=== PATIENT | male | born 1990 | race Caucasian/White ===

== ENCOUNTER 2018-07-24 05:19 | Emergency (ER) | payer SELFPAY ==
[2018-07-24] MEDS ORDERED: ONDANSETRON 4 MG/2 ML VIAL IVP ONE (05:37)
[2018-07-24] MEDS ORDERED: NS 1,000 ML IV ONE ×2 (05:37→06:11)
[2018-07-24] MEDS ORDERED: KETOROLAC 15 MG/1 ML SDV IVP ONE (05:37)
[2018-07-24] MEDS ORDERED: HYDROmorphONE/DILAUDID 2 MG/ML INJ IVP ONE (05:37)
[2018-07-24] MEDS ORDERED: LIDOCAINE 1% 180 MG in NS 100 ML IV ONE (05:38)
--- NOTE | 2018-07-24 05:40 | EDPHY ---
H & P Stated Complaint: LEFT FLANK PAIN Time Seen by Provider: 07/24/18 05:29 HPI/ROS: HPI The patient presents with left flank pain which awoke him from sleep at 3:00 a.m. This morning. He felt fine when he went to bed last night. He is had progressively worse dull left flank pain without any radiation for the last several hours, not improved with Tylenol which he took earlier. He does not have any nausea or vomiting. He has a history of renal colic, last episode about 2 years ago with total of 5 episodes in his lifetime. He is not sure where or how his kidney stones were diagnosed.. REVIEW OF SYSTEMS 10 systems were reviewed and negative with the exception of the elements mentioned in the history of present illness. PMHx: Renal colic previously Soc Hx: Here with his partner PHYSICAL General Appearance: Alert, pacing and uncomfortable appearing Eyes: Pupils equal and round no pallor or injection ENT, Mouth: Mucous membranes moist Respiratory: There are no retractions, lungs are clear to auscultation Cardiovascular: Regular rate and rhythm Gastrointestinal: Abdomen is soft and non-tender, no masses, bowel sounds normal Back: There is left flank tenderness without any overlying skin change Neurological: A&O, moves all extremities Skin: Warm and dry, no rashes Musculoskeletal: Neck is supple non tender Extremities: symmetrical, full range of motion Psychiatric: Patient is oriented X 3, there is no agitation Source: Patient Exam Limitations: No limitations - Personal History Current Tetanus/Diphtheria Vaccine: Yes Current Tetanus Diphtheria and Acellular Pertussis (TDAP): Yes - Medical/Surgical History Hx Asthma: No Hx Chronic Respiratory Disease: No Hx Diabetes: No Hx Cardiac Disease: No Hx Renal Disease: No Hx Cirrhosis: No Hx Alcoholism: No Hx HIV/AIDS: No Hx Splenectomy or Spleen Trauma: No Other PMH: KIDNEY STONES - Social History Smoking Status: Never smoked Constitutional: Initial Vital Signs Temperature (C) 36.9 C 07/24/18 05:21 Heart Rate 86 07/24/18 05:21 Respiratory Rate 18 07/24/18 05:21 Blood Pressure 164/88 H 07/24/18 05:21 O2 Sat (%) 97 07/24/18 05:21 O2 Delivery Mode Room Air Allergies/Adverse Reactions: No Known Allergies Allergy (Unverified 07/24/18 05:24) Home Medications: Medication Instructions Recorded oxyCODONE HCL/ACETAMINOPHEN 1 each PO Q6H PRN #10 tablet 07/24/18 [Percocet 5-325 mg Tablet] Medical Decision Making Procedures: Bedside limited abdominal Ultrasound- performed and interpreted by me. Indication: Left flank pain Findings: Mild left-sided hydronephrosis, no right-sided hydronephrosis, no fluid in Morison's pouch Impression: Mild left-sided hydronephrosis Differential Diagnosis: This is a 27-year-old male with history of previous renal colic who presents with left-sided flank pain for the last several hours which awoke him from sleep. He has been unable to urinate. He does not have any nausea or vomiting. Symptoms feel similar to prior episodes of ureterolithiasis. All of his previous stones have passed spontaneously. In the emergency department, patient was started on IV fluids. Basic labs were checked. He was given medication for pain and nausea. His symptoms improved rapidly. Labs were unremarkable. Bedside ultrasound was performed by me demonstrating mild left-sided hydronephrosis. He says in all of his 5-6 previous episodes of renal colic his stones have passed spontaneously. Thus I do not feel CT scan is necessary at this time. I suspect he will be suitable for discharge shortly. I am currently awaiting a urinalysis. 6:48 a.m.- UA has returned showing red blood cells only and no signs of infection. Patient will be discharged home with urine strainer. - Data Points Laboratory Results: Laboratory Results 07/24/18 05:40 07/24/18 05:40 07/24/18 07/24/18 07/24/18 06:30 05:40 05:40 WBC 8.88 10^3/uL 10^3/uL (3.80-9.50) RBC 5.28 10^6/uL 10^6/uL (4.40-6.38) Hgb 15.6 g/dL g/dL (13.7-17.5) Hct 46.0 % % (40.0-51.0) MCV 87.1 fL fL (81.5-99.8) MCH 29.5 pg pg (27.9-34.1) MCHC 33.9 g/dL g/dL (32.4-36.7) RDW 12.2 % % (11.5-15.2) Plt Count 282 10^3/uL 10^3/uL (150-400) MPV 10.0 fL fL (8.7-11.7) Neut % (Auto) 38.2 % L % (39.3-74.2) Lymph % (Auto) 48.6 % H % (15.0-45.0) [place] % (Auto) 9.6 % % (4.5-13.0) Eos % (Auto) 2.8 % % (0.6-7.6) Baso % (Auto) 0.7 % % (0.3-1.7) Nucleat RBC Rel Count 0.0 % % (0.0-0.2) Absolute Neuts (auto) 3.39 10^3/uL 10^3/uL (1.70-6.50) Absolute Lymphs (auto) 4.32 10^3/uL H 10^3/uL (1.00-3.00) Absolute Monos (auto) 0.85 10^3/uL H 10^3/uL (0.30-0.80) Absolute Eos (auto) 0.25 10^3/uL 10^3/uL (0.03-0.40) Absolute Basos (auto) 0.06 10^3/uL 10^3/uL (0.02-0.10) Absolute Nucleated RBC 0.00 10^3/uL 10^3/uL (0-0.01) Immature Gran % 0.1 % % (0.0-1.1) Immature Gran # 0.01 10^3/uL 10^3/uL (0.00-0.10) Sodium 142 mEq/L mEq/L (135-145) Potassium 3.7 mEq/L mEq/L (3.3-5.0) Chloride 107 mEq/L mEq/L (97-110) Carbon Dioxide 24 mEq/l mEq/l (22-31) Anion Gap 11 mEq/L mEq/L (6-14) BUN 17 mg/dL mg/dL (7-23) Creatinine 1.0 mg/dL mg/dL (0.7-1.3) Estimated GFR > 60 Glucose 128 mg/dL H mg/dL (70-100) Calcium 9.6 mg/dL mg/dL (8.5-10.4) Urine Color YELLOW Urine Appearance HAZY Urine pH 5.0 (5.0-7.5) Ur Specific [place] 1.023 (1.002-1.030) Urine Protein NEGATIVE (NEGATIVE) Urine Ketones NEGATIVE (NEGATIVE) Urine Blood 3+ H (NEGATIVE) Urine Nitrate NEGATIVE (NEGATIVE) Urine Bilirubin NEGATIVE (NEGATIVE) Urine Urobilinogen NEGATIVE EU EU (0.2-1.0) Ur Leukocyte Esterase NEGATIVE (NEGATIVE) Urine RBC 50-182 /hpf H /hpf (0-3) Urine WBC 1-3 /hpf /hpf (0-3) Ur Epithelial Cells TRACE /lpf /lpf (NONE-1+) Urine Mucus 2+ /lpf H /lpf (NONE-1+) Urine Glucose NEGATIVE (NEGATIVE) Medications Given: Discontinued Medications Hydromorphone HCl (Dilaudid) 0.5 mg IVP EDNOW ONE Stop: 07/24/18 05:38 Last Admin: 07/24/18 05:47 Dose: 0.5 mg Sodium Chloride (Ns) 1,000 mls @ 0 mls/hr IV EDNOW ONE; Wide Open PRN Reason: Protocol Stop: 07/24/18 05:38 Last Admin: 07/24/18 05:43 Dose: 1,000 mls Lidocaine HCl 180 mg/ Sodium (Chloride) 118 mls @ 600 mls/hr IV EDNOW ONE Stop: 07/24/18 05:49 Last Admin: 07/24/18 05:44 Dose: 118 mls Sodium Chloride (Ns) 1,000 mls @ 0 mls/hr IV EDNOW ONE; Wide Open PRN Reason: Protocol Stop: 07/24/18 06:12 Last Admin: 07/24/18 06:15 Dose: 1,000 mls Ketorolac Tromethamine (Toradol) 15 mg IVP EDNOW ONE Stop: 07/24/18 05:38 Last Admin: 07/24/18 05:44 Dose: 15 mg Ondansetron HCl (Zofran) 4 mg IVP EDNOW ONE Stop: 07/24/18 05:38 Last Admin: 07/24/18 05:44 Dose: 4 mg Departure - Departure Disposition: Home, Routine, Self-Care Clinical Impression: Ureterolithiasis Condition: Good Instructions: Ureteral Stones (ED) Additional Instructions: 1. Take Ibuprofen or Motrin 600 mg by mouth three times a day. 2. Add Percocet 1-2 tabs every 6 hr for pain not improved with ibuprofen. 3. Strain urine as directed 4. Return to the Emergency Department for intractable pain, fever or vomiting. 5. Followup with the urologist you have been referred to for unimproved symptoms. Referrals: Blaise López MD [Medical Doctor] - As per Instructions Prescriptions: oxyCODONE HCL/ACETAMINOPHEN [Percocet 5-325 mg Tablet] 1 each PO Q6H PRN #10 tablet PRN Reason: Pain, Breakthrough
[2018-07-24 05:57] LABS: PLATELET COUNT 282 10^3/uL (150-400)
[2018-07-24] MEDS ORDERED: OXYCODONE/APAP 5/325MG PREPACK#4 BTL TAKEHOME ONE (06:51)
[2018-07-24 07:19] VITALS: BP 119/65
== END 2018-07-24 07:28 | disposition home or self-care (01) ==
DX: N20.1 Calculus of ureter (principal)
CPT/HCPCS: 96365; J1170; J1885; J2405